=== PATIENT | female | born 1950 | race African-American/Black ===

== ENCOUNTER 2017-10-21 16:51 | Observation (INO) ==
[2017-10-21 17:29] LABS: Basophils % 0.3 % (0.0-0.8); Eosinophils # 0.2 10*3/uL (0.0-0.87); Eosinophils % 3.1 % (0.00-10.9); Hematocrit 36.8 VOL% (35.7-47.0); Hemoglobin 12.6 GM/DL (12.0-16.0); Immature Granulocytes % 0.3 %; Immature Granulocytes Absolute 0.02 #; Lymphocytes # 1.9 10*3/uL (1.4-4.0); Lymphocytes % 24.8 % (21.3-54.2); Mean Corpuscular HGB Conc 34.2 GM/DL (32-36); Mean Corpuscular Hemoglobin 32 PG (27-34); Mean Corpuscular Volume 92.7 FL (87-102); Mean Platelet Volume 9.6 FL (9.6-12.0); Monocytes # 0.6 10*3/uL (0.11-0.8); Monocytes % 7.4 % (1.7-12.7); Neutrophils # 4.8 10*3/uL (1.4-7.4); Neutrophils % 64.1 % (38.7-73.9); Platelet Count 181 T/CUMM (130-400); Red Blood Count 3.97 MC/CUMM (3.8-5.5); White Blood Count 7.5 T/CUMM (4-12)
[2017-10-21 17:39] LABS: PT Patient Result 10.5 SECS; Partial Thromboplastin Time 34.3 SECS (0-40)
[2017-10-21 17:45] LABS: Alanine Aminotransferase 24 U/L (13-56); Albumin 4.1 G/DL (3.4-5.0); Alkaline Phosphatase 58 U/L (45-117); Amylase 63 U/L (25-115); Aspartate Amino Transferase 20 U/L (0-37); Blood Urea Nitrogen 12 MG/DL (7-18); Calcium 9.1 MG/DL (8.5-10.1); Glucose 143 MG/DL (74-106); Osmolality,Calculated 261.8 MOS/KG (273-304); Potassium 3.2 MMOL/L (3.5-5.1); Sodium 130 MMOL/L (136-145); Total Protein 7.6 G/DL (6.4-8.3); Troponin I Only < 0.015 NG/ML (0.00-0.045)
[2017-10-21] MEDS ORDERED: MAGNESIUM SULF RIDER 4 GM in PREMIX 1 EACH IV PRN (23:01)
[2017-10-21] MEDS ORDERED: ONDANSETRON 4 MG/2 ML VIAL IV PRN (23:01)
[2017-10-21] MEDS ORDERED: ACETAMINOPHEN 325 MG TABLET PO PRN (23:01)
[2017-10-21] MEDS ORDERED: MAGNESIUM SULF RIDER 2 GM in PREMIX 1 EACH IV PRN (23:01)
[2017-10-21] MEDS ORDERED: DOCUSATE SODIUM 100 MG CAPSULE PO PRN (23:01)
[2017-10-21] MEDS ORDERED: guaiFENesin/DM ER 600-30 MG TABLET PO PRN (23:01)
[2017-10-21] MEDS ORDERED: ZALEPLON 5 MG CAPSULE PO PRN (23:01)
[2017-10-21] MEDS ORDERED: BISACODYL 5 MG TABLET PO PRN (23:01)
[2017-10-21] MEDS ORDERED: diphenhydrAMINE CAP 25 MG CAPSULE PO PRN (23:01)
[2017-10-21] MEDS: CAPTOPRIL 6.25 MG TABLET PO SCH (23:20)
[2017-10-21] MEDS: ASPIRIN EC 81 MG TABLET PO SCH (23:34)
[2017-10-21] MEDS: SIMVASTATIN 10 MG TABLET PO SCH (23:35)
[2017-10-21] MEDS: CARVEDILOL 6.25 MG TABLET PO SCH (23:35)
[2017-10-21] MEDS: FAMOTIDINE 20 MG TABLET PO SCH (23:35)
[2017-10-21] MEDS: POTASSIUM CHLORIDE 20 MEQ TABLET PO PRN (23:35)
[2017-10-21 23:40] LABS: Troponin I Only < 0.015 NG/ML (0.00-0.045)
[2017-10-22] MEDS: POTASSIUM CHLORIDE 20 MEQ TABLET PO PRN ×3 (01:45→05:35)
[2017-10-22 02:13] LABS: Troponin I Only < 0.015 NG/ML (0.00-0.045)
[2017-10-22 04:12] LABS: Basophils % 0.4 % (0.0-0.8); Eosinophils # 0.2 10*3/uL (0.0-0.87); Eosinophils % 3.5 % (0.00-10.9); Hemoglobin 11.6 GM/DL (12.0-16.0); Immature Granulocytes % 0.2 %; Immature Granulocytes Absolute 0.01 #; Lymphocytes # 1.6 10*3/uL (1.4-4.0); Lymphocytes % 30.4 % (21.3-54.2); Mean Corpuscular HGB Conc 34.1 GM/DL (32-36); Mean Corpuscular Hemoglobin 32 PG (27-34); Mean Corpuscular Volume 92.9 FL (87-102); Mean Platelet Volume 9.7 FL (9.6-12.0); Monocytes # 0.5 10*3/uL (0.11-0.8); Monocytes % 9.1 % (1.7-12.7); Neutrophils # 3.1 10*3/uL (1.4-7.4); Neutrophils % 56.4 % (38.7-73.9); Platelet Count 160 T/CUMM (130-400); Red Blood Count 3.66 MC/CUMM (3.8-5.5); White Blood Count 5.4 T/CUMM (4-12)
[2017-10-22 04:56] LABS: Calcium 8.8 MG/DL (8.5-10.1); Osmolality,Calculated 267.1 MOS/KG (273-304); Potassium 3.7 MMOL/L (3.5-5.1); Risk Ratio 2.08; VLDL CHOLESTEROL 9.6 MG/DL
[2017-10-22 04:57] LABS: Troponin I Only < 0.015 NG/ML (0.00-0.045)
[2017-10-22] MEDS ORDERED: ALUM/MAG/SIMETH/LIDO VISC 1:1 30 ML BOTTLE PO ONE (08:34)
[2017-10-22] MEDS: CAPTOPRIL 6.25 MG TABLET PO SCH ×2 (09:02→21:50)
[2017-10-22] MEDS: PANTOPRAZOLE 40 MG TABLET PO SCH (09:03)
[2017-10-22] MEDS: CARVEDILOL 6.25 MG TABLET PO SCH ×2 (09:03→16:12)
[2017-10-22] MEDS: ENOXAPARIN 40 MG/0.4 ML SYRINGE SUBCUT SCH (09:03)
[2017-10-22] MEDS: hydroCHLOROthiazide 25 MG TABLET PO SCH (09:03)
[2017-10-22] MEDS: FAMOTIDINE 20 MG TABLET PO SCH (21:50)
[2017-10-22] MEDS: ASPIRIN EC 81 MG TABLET PO SCH (21:50)
[2017-10-22] MEDS: SIMVASTATIN 10 MG TABLET PO SCH (21:50)
[2017-10-23 06:02] LABS: Basophils % 0.4 % (0.0-0.8); Eosinophils # 0.2 10*3/uL (0.0-0.87); Eosinophils % 3.4 % (0.00-10.9); Hematocrit 34.2 VOL% (35.7-47.0); Hemoglobin 11.8 GM/DL (12.0-16.0); Immature Granulocytes % 0.2 %; Immature Granulocytes Absolute 0.01 #; Lymphocytes # 1.4 10*3/uL (1.4-4.0); Lymphocytes % 28.6 % (21.3-54.2); Mean Corpuscular HGB Conc 34.5 GM/DL (32-36); Mean Corpuscular Hemoglobin 32 PG (27-34); Mean Corpuscular Volume 91.4 FL (87-102); Mean Platelet Volume 9.7 FL (9.6-12.0); Monocytes # 0.4 10*3/uL (0.11-0.8); Monocytes % 9.1 % (1.7-12.7); Neutrophils # 2.8 10*3/uL (1.4-7.4); Neutrophils % 58.3 % (38.7-73.9); Platelet Count 151 T/CUMM (130-400); Red Blood Count 3.74 MC/CUMM (3.8-5.5); Red Cell Distribution Width 13.2 % (9.3-17.3); White Blood Count 4.7 T/CUMM (4-12)
[2017-10-23 06:13] LABS: Calcium 8.5 MG/DL (8.5-10.1); Potassium 3.5 MMOL/L (3.5-5.1)
[2017-10-23] MEDS: PANTOPRAZOLE 40 MG TABLET PO SCH (08:33)
[2017-10-23] MEDS: ENOXAPARIN 40 MG/0.4 ML SYRINGE SUBCUT SCH (08:33)
[2017-10-23] MEDS: CAPTOPRIL 6.25 MG TABLET PO SCH (08:33)
[2017-10-23] MEDS: hydroCHLOROthiazide 25 MG TABLET PO SCH (08:33)
[2017-10-23] MEDS: CARVEDILOL 6.25 MG TABLET PO SCH (08:33)
[2017-10-23 15:41] VITALS: BP 138/70
[2017-10-25] MEDS ORDERED: ESTRADIOL TRANSDERM SCH (09:00)
== END 2017-10-23 16:30 | disposition home or self-care (01) ==
LOC: N.ED 16:51 → N.EDINP 16:51 → N.TELES 21:00
PROVIDERS: ADMIT Internal Medicine Interventional Cardiology; ATTEND Internal Medicine Interventional Cardiology